=== PATIENT | female | born 1965 | race African-American/Black ===

== ENCOUNTER 2018-07-16 00:14 | Emergency (ER) | payer MEDICAID ==
[~2018-07-16] VITALS: Ht 167.6 cm; Wt 68.0 kg
[2018-07-16] MEDS ORDERED: LIDOCAINE 1%/EPI 1:100,000 10 ML VIAL IJ ONE (04:15)
[2018-07-16] MEDS ORDERED: HYDROCODONE/ACETAMINOPHEN 5/325MG TABLET PO ONE (04:15)
[2018-07-16] MEDS ORDERED: TETANUS, DIPHTHERIA, PERTUSSIS VAC/PF 0.5ML (>7YR OLD) IM ONE (04:15)
[2018-07-16] MEDS ORDERED: BACITRACIN ZINC OINT UDPKT TOP ONE (06:30)
[2018-07-16 06:35] VITALS: BP 110/66
== END 2018-07-16 06:42 | disposition home or self-care (01) ==
LOC: ER 00:14
DX: S41.111A Laceration without foreign body of right upper arm, initial encounter (principal); X58.XXXA Exposure to other specified factors, initial encounter; Y93.89 Activity, other specified; Y92.89 Other specified places as the place of occurrence of the external cause; Y99.8 Other external cause status
CPT/HCPCS: 12004; 90715; 99283; J3490

== ENCOUNTER 2018-07-27 17:45 | Emergency (ER) | payer MEDICAID ==
[~2018-07-27] VITALS: Ht 160 cm; Wt 52.0 kg
[2018-07-27 20:34] VITALS: BP 112/48
== END 2018-07-27 20:36 | disposition home or self-care (01) ==
LOC: ER 17:45
DX: Z48.02 Encounter for removal of sutures (principal); T81.30XA Disruption of wound, unspecified, initial encounter; Y84.8 Other medical procedures as the cause of abnormal reaction of the patient, or of later complication, without mention of misadventure at the time of the procedure; Y92.89 Other specified places as the place of occurrence of the external cause
CPT/HCPCS: 99283; Z7610